=== PATIENT | female | born 1960 | race African-American/Black ===

== ENCOUNTER 2017-09-24 07:12 | Emergency (ER) | payer SELFPAY ==
[~2017-09-24] VITALS: Ht 162.6 cm; Wt 82.0 kg
[2017-09-24] MEDS ORDERED: BACITRACIN ZINC 15GM TUBE TOP ONE (11:00)
[2017-09-24] MEDS ORDERED: ACETAMINOPHEN WITH CODEINE 300/30MG TABLET PO ONE (11:00)
[2017-09-24 11:18] LABS: BASOPHILS % 0.5 % (0.0-2.0); EOSINOPHILS % 2.1 % (0.0-5.0); HEMATOCRIT. 43.2 % (36.0-48.0); HEMOGLOBIN. 14.6 g/dL (12.0-16.0); LYMPHOCYTES % 41.1 % (20.0-50.0); MEAN CORPUSCULAR VOLUME 88.9 fL (81.0-99.0); MEAN PLATELET VOLUME 8.3 fl (7.4-10.4); NEUTROPHILS % 49.3 % (40.0-76.0); PLATELET 305 x1000/uL (130-400); RED BLOOD CELL COUNT 4.87 mill/uL (4.2-5.4); RED CELL DISTRIBUTION WIDTH 13.2 % (11.6-14.6)
[2017-09-24 11:30] LABS: CARBON DIOXIDE 30 mEq/L (21-32); CHLORIDE 107 mEq/L (98-107)
[2017-09-24] MEDS ORDERED: KETOROLAC 60MG/2ML VIAL IM ONE (11:30)
[2017-09-24 11:39] VITALS: BP 132/84
== END 2017-09-24 12:03 | disposition home or self-care (01) ==
LOC: ER 07:12
DX: R42 Dizziness and giddiness (principal)
CPT/HCPCS: 36415; 80053; 85025; 99284

== ENCOUNTER 2018-12-23 17:33 | Emergency (ER) | payer MEDICAID, OTHER ==
[~2018-12-23] VITALS: Ht 165.1 cm; Wt 100.0 kg
[2018-12-23] MEDS ORDERED: SODIUM CHLORIDE 0.9% 1,000 ML IV ONE (19:11)
[2018-12-23] MEDS ORDERED: IBUPROFEN 600MG TABLET PO STA (19:11)
[2018-12-23] MEDS ORDERED: DIAZEPAM 5 MG TABLET PO ONE (19:15)
[2018-12-23 19:32] LABS: BASOPHILS % 0.6 % (0.0-2.0); EOSINOPHILS % 1.6 % (0.0-5.0); HEMATOCRIT. 42.6 % (36.0-48.0); HEMOGLOBIN. 14.3 g/dL (12.0-16.0); LYMPHOCYTES % 36.4 % (20.0-50.0); MEAN CORPUSCULAR HEMOGLOBIN 29.9 pg (28.0-32.0); MEAN CORPUSCULAR VOLUME 88.7 fL (81.0-99.0); MEAN PLATELET VOLUME 8.1 fl (7.4-10.4); MONOCYTES % 7.2 % (2.0-8.0); NEUTROPHILS % 54.2 % (40.0-76.0); PLATELET 315 x1000/uL (130-400)
[2018-12-23 19:36] LABS: CHLORIDE 110 mEq/L (98-107)
[2018-12-23 20:20] VITALS: BP 131/71
[2018-12-23 20:31] LABS: CLARITY URINE CLEAR (CLEAR); COLOR URINE YELLOW (YELLOW); KETONES URINE NEGATIVE (NEGATIVE); LEUKOCYTE ESTERASE URINE NEGATIVE (NEGATIVE); NITRITE URINE NEGATIVE (NEGATIVE); OCCULT BLOOD URINE NEGATIVE (NEGATIVE); PROTEIN URINE NEGATIVE (NEGATIVE)
== END 2018-12-23 22:25 | disposition home or self-care (01) ==
LOC: ER 17:33
DX: R42 Dizziness and giddiness (principal); G89.29 Other chronic pain; M54.89 Other dorsalgia; Z90.710 Acquired absence of both cervix and uterus
CPT/HCPCS: 36415; 71045; 80053; 81003; 85025; 93005; 96360; 96361; 99284; J7030

== ENCOUNTER 2019-01-13 14:20 | Emergency (ER) | payer MEDICAID ==
[~2019-01-13] VITALS: Ht 165.1 cm; Wt 76.0 kg
[2019-01-13] MEDS ORDERED: TRAMADOL 50MG TABLET PO ONE (15:30)
[2019-01-13 15:31] VITALS: BP 145/89
== END 2019-01-13 15:38 | disposition home or self-care (01) ==
LOC: ER 14:20
DX: G89.29 Other chronic pain (principal); M54.5 Low back pain; Z90.710 Acquired absence of both cervix and uterus
CPT/HCPCS: 99283

== ENCOUNTER 2020-05-03 09:20 | Inpatient (IN) | payer MEDICARE, MEDICAID ==
[~2020-05-03] VITALS: Ht 162.6 cm; Wt 97.5 kg
[2020-05-03 10:02] LABS: BASOPHILS % 0.9 % (0.0-2.0); HEMATOCRIT. 42.9 % (36.0-48.0); HEMOGLOBIN. 14.4 g/dL (12.0-16.0); MEAN CORPUSCULAR HEMOGLOBIN 29.5 pg (28.0-32.0); MEAN CORPUSCULAR VOLUME 87.8 fL (81.0-99.0); MEAN PLATELET VOLUME 8.1 fl (7.4-10.4); MONOCYTES % 8.2 % (2.0-8.0); NEUTROPHILS % 50.9 % (40.0-76.0); PLATELET 297 x1000/uL (130-400); RED BLOOD CELL COUNT 4.89 mill/uL (4.2-5.4); RED CELL DISTRIBUTION WIDTH 13.6 % (11.6-14.6)
[2020-05-03 10:08] LABS: CHLORIDE 109 mEq/L (98-107)
[2020-05-03] MEDS ORDERED: SODIUM CHLORIDE 0.9% 1,000 ML IV ONE (13:20)
[2020-05-03] MEDS ORDERED: MECLIZINE 25MG TABLET PO ONE (13:30)
[2020-05-03] MEDS ORDERED: ONDANSETRON HCL 4MG/2ML INJ IV PRN (14:00)
[2020-05-03] MEDS: ENOXAPARIN 40MG/0.4ML SYR SUBCUT SCH (17:02)
[2020-05-03 19:14] VITALS: BP 141/82
[2020-05-03 20:00] VITALS: BP 113/73
[2020-05-03 20:39] VITALS: BP 113/73
[2020-05-04] VITALS (7 sets, daily range): BP systolic 95–129; BP diastolic 50–84
[2020-05-04] MEDS: ACETAMINOPHEN 325MG TABLET PO PRN ×2 (04:50→14:56)
[2020-05-04 06:56] LABS: BASOPHILS % 0.8 % (0.0-2.0); EOSINOPHILS % 2.6 % (0.0-5.0); HEMATOCRIT. 40.7 % (36.0-48.0); HEMOGLOBIN. 13.6 g/dL (12.0-16.0); LYMPHOCYTES % 46.2 % (20.0-50.0); MEAN CORPUSCULAR HEMOGLOBIN 29.5 pg (28.0-32.0); MEAN CORPUSCULAR VOLUME 88.5 fL (81.0-99.0); MEAN PLATELET VOLUME 8.7 fl (7.4-10.4); MONOCYTES % 8.1 % (2.0-8.0); NEUTROPHILS % 42.3 % (40.0-76.0); PLATELET 269 x1000/uL (130-400); RED BLOOD CELL COUNT 4.59 mill/uL (4.2-5.4); RED CELL DISTRIBUTION WIDTH 13.4 % (11.6-14.6)
[2020-05-04 07:06] LABS: CHLORIDE 111 mEq/L (98-107)
[2020-05-04] MEDS: ENOXAPARIN 40MG/0.4ML SYR SUBCUT SCH (08:57)
[2020-05-04] MEDS ORDERED: ALPRAZOLAM 0.25 MG TABLET PO NR (12:15)
[2020-05-04] MEDS: DOCUSATE SODIUM 250MG CAPSULE PO PRN (12:51)
[2020-05-04] MEDS ORDERED: ALPRAZOLAM 0.25 MG TABLET PO PRN (16:00)
[2020-05-04 19:11] LABS: CLARITY URINE CLEAR (CLEAR); COLOR URINE YELLOW (YELLOW); KETONES URINE TRACE (NEGATIVE); LEUKOCYTE ESTERASE URINE NEGATIVE (NEGATIVE); NITRITE URINE NEGATIVE (NEGATIVE); OCCULT BLOOD URINE NEGATIVE (NEGATIVE); PROTEIN URINE NEGATIVE (NEGATIVE)
[2020-05-04 19:39] LABS: *AMPHETAMINES SCREEN URINE NEGATIVE (NEGATIVE)
[2020-05-04 19:40] LABS: *BARBITURATES SCREEN URINE NEGATIVE (NEGATIVE); *BENZODIAZEPINES SCREEN URINE NEGATIVE (NEGATIVE); *COCAINE SCREEN URINE NEGATIVE (NEGATIVE); CANNABINOID URINE SCREEN NEGATIVE (NEGATIVE); METHADONE URINE SCREEN NEGATIVE (NEGATIVE); OPIATES URINE SCREEN NEGATIVE (NEGATIVE); PHENCYCLIDINE URINE SCREEN NEGATIVE (NEGATIVE)
[2020-05-05] VITALS: BP 102/65
[2020-05-05 04:00] VITALS: BP 99/54
[2020-05-05] MEDS: DOCUSATE SODIUM 250MG CAPSULE PO PRN (08:41)
[2020-05-05] MEDS: ENOXAPARIN 40MG/0.4ML SYR SUBCUT SCH (08:41)
[2020-05-05 09:01] VITALS: BP 101/67
[2020-05-05 12:23] VITALS: BP 108/60
[2020-05-05 14:40] VITALS: BP 108/60
== END 2020-05-05 16:05 | disposition home or self-care (01) | DRG 74 ==
LOC: ER 09:20 → 6WST 13:05 → ENRESERV 14:06
PROVIDERS: ADMIT Internal Medicine; ATTEND Internal Medicine
DX: G90.8 Other disorders of autonomic nervous system (principal); E66.9 Obesity, unspecified; E87.8 Other disorders of electrolyte and fluid balance, not elsewhere classified; G89.29 Other chronic pain; I10 Essential (primary) hypertension; E78.5 Hyperlipidemia, unspecified; F41.9 Anxiety disorder, unspecified; M47.896 Other spondylosis, lumbar region; M47.892 Other spondylosis, cervical region; Z71.3 Dietary counseling and surveillance; Z68.36 Body mass index [BMI] 36.0-36.9, adult
CPT/HCPCS: 36415; 70551; 71045; 72141; 72148; 80048; 80053; 80061; 80305; 81003; 83880; 84443; 84484; 85025; 93005; 93306; 93880; 97162; 97530; 97535; 99285; J1650; J7030; J8597

== ENCOUNTER 2021-12-25 02:38 | Emergency (ER) | payer BC, MEDICAID ==
[~2021-12-25] VITALS: Ht 165.1 cm; Wt 82.0 kg
[2021-12-25 02:50] VITALS: BP 150/90
== END 2021-12-25 04:03 | disposition home or self-care (01) ==
LOC: ER 02:38
DX: Z13.9 Encounter for screening, unspecified (principal)
CPT/HCPCS: 99283

== ENCOUNTER 2023-03-02 11:51 | Emergency (ER) | payer OTHER ==
[~2023-03-02] VITALS: Ht 167.6 cm; Wt 82.0 kg
[2023-03-02 11:56] VITALS: BP 147/96
[2023-03-02] MEDS ORDERED: FAMOTIDINE 20MG TABLET PO ONE (12:30)
[2023-03-02] MEDS ORDERED: DEXAMETHASONE 4MG TABLET PO ONE (12:30)
[2023-03-02] MEDS ORDERED: DIPHENHYDRAMINE 25MG CAPSULE PO ONE (12:30)
[2023-03-02] MEDS ORDERED: EPIN0.3P3 IM (13:17)
== END 2023-03-02 13:39 | disposition home or self-care (01) ==
LOC: ER 11:51
DX: R22.0 Localized swelling, mass and lump, head (principal); R21 Rash and other nonspecific skin eruption; R20.2 Paresthesia of skin; F41.9 Anxiety disorder, unspecified
CPT/HCPCS: 99283; Q0163; J8540